=== PATIENT | male | born 1990 | race Caucasian/White ===

== ENCOUNTER 2018-05-18 16:20 | Emergency (ER) | payer OTHER ==
[2018-05-18] MEDS ORDERED: EPINEPHRINE INJ/PF 1 MG/1 ML AMPULE IM ONE (17:31)
[2018-05-18] MEDS ORDERED: FAMOTIDINE 20 MG TABLET PO ONE (17:32)
[2018-05-18] MEDS ORDERED: DEXAMETHASONE SOD PHOS INJ 10 MG/1 ML VIAL IM ONE (17:32)
--- NOTE | 2018-05-18 17:33 | ER Document Report ---
ED Allergic Reaction - General Chief Complaint: Allergic Reaction Stated Complaint: POSSIBLE ALLERGIC REACTION Time Seen by Provider: 05/18/18 17:31 Mode of Arrival: Ambulatory Information source: Patient, Relative Notes: Patient is a 27-year-old male who comes in emergency room in somewhat of a emergent fashion. Patient was working outside in stepped in or was working around by her aunts. They intact his lower extremities and was bitten several times. A few minutes later patient started having difficulty breathing he broke out in a sweat he itched all over and had a rash that was developing. He was and gave him 50 mg of Benadryl p.o. and ibuprofen in the head here to the emergency room. Patient complained of shortness of breath some upper lip swelling. Patient had no difficulty swallowing although he complained of some shortness of breath he had no airway obstruction at that time. He also stated he had a burning/weight in the center of his chest. Denies any other medical problems. TRAVEL OUTSIDE OF THE [place] IN LAST 30 DAYS: No - HPI Onset: Just prior to arrival Onset/Duration: Sudden, Worse Quality of pain: Burning, Fullness, Pressure Severity: Moderate Pain Level: 3 Identified cause: Yes Food exposure: Other - Fire ants Skin rash / itching: Facial, Trunk, Extremities, Diffuse, "Redness", "Hives" Swelling: Face, Lip(s) Trouble swallowing / speaking: Moderate Associated symptoms: Chest pain Similar symptoms previously: No Recently seen / treated by doctor: No - Related Data Allergies/Adverse Reactions: No Known Allergies Allergy (Verified 05/18/18 16:21) Past Medical History - General Information source: Patient, Relative - Social History Smoking Status: Never Smoker Cigarette use (# per day): No Chew tobacco use (# tins/day): No Smoking Education Provided: No Frequency of alcohol use: None Drug Abuse: None Lives with: Family Family History: Reviewed & Not Pertinent Review of Systems - Review of Systems Constitutional: No symptoms reported EENT: Difficulty swallowing, Mouth swelling. denies: Throat swelling Cardiovascular: No symptoms reported Respiratory: No symptoms reported Gastrointestinal: No symptoms reported Genitourinary: No symptoms reported Male Genitourinary: No symptoms reported Musculoskeletal: No symptoms reported Skin: Rash Hematologic/Lymphatic: No symptoms reported Neurological/Psychological: No symptoms reported -: Yes All other systems reviewed and negative Physical Exam - Vital signs Vitals: Temp Pulse Resp BP Pulse Ox 98.2 F 75 20 135/69 H 99 05/18/18 17:08 05/18/18 17:08 05/18/18 17:08 05/18/18 17:08 05/18/18 17:08 Interpretation: Hypertensive - Notes Notes: Well-nourished well-developed 27-year-old male moderate distress with rash and shortness of breath and upper lip swelling. - General General appearance: Alert, Anxious In distress: Moderate - HEENT Head: Normocephalic, Other - Patient has some mild swelling about his facial features. This includes around the lower eyes and cheek area. Also slightly around the upper lip. Lower lip is spared at this time. Eyes: Normal Conjunctiva: Normal External canal: Normal Tympanic membrane: Normal Sinus: Normal Nasal: Clear rhinorrhea Mouth/Lips: Other - Physical exam of his oral cavity on closer examination because he is allergic. Is more prominent when you can examine the upper lip which is just slightly enlarged compared to the lower. Somewhat protruding now and a little puffy. Pharynx: Normal, Potential airway comprom., Other - Examination of the oral cavity also with posterior pharynx appears normal at this time. Also patient has a normal-appearing tongue does not seem to be any angioedema related to the telemetry at this time. Patient is handling his secretions without any problem and he is breathing without any difficulty. He is satting 100% on room air. Neck: Normal, Supple. No: Anterior cervical chain, Posterior cervical chain, Carotid bruit, Kernig's, Lymphadenopathy, Meningismus, Neck mass, Shotty nodes, Subcutaneous emphysema, Thyromegally - Respiratory Respiratory status: No respiratory distress Chest status: Nontender Breath sounds: Normal, Wheezing, Other - Auscultation patient's lung case shows he has bilateral breath sounds breath sounds are increased with just a faint inspiratory wheeze noted mostly on the right side. No rhonchi rales are noted. Patient is exchanging air without any sign of airway compromise at this time.. 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 They are not extremely prominent but are visible. Patient is not diaphoretic and the sense of dripping wet. He is glistening so is more just a moist than diaphoretic at this time. Course - Re-evaluation Re-evalutation: 05/20/18 13:48 Given the patient had taken Benadryl p.o prior to arrival and the fact that he had some angioedema of the upper lip. Elected at this time to be on safe side and I did administer epinephrine x1. This was I believe 0.3 I am with epinephrine. And then we monitor patient along with his dexamethasone. He progressed really well without any side effects. His feelings of chest pain evaporated his mild shortness of breath also cleared up re-auscultation patient' s lung case show that the wheezing disappeared and he was clear to auscultation bilaterally and he was feeling much better. I had sit down with him and his and explained to them I am writing him for an EpiPen and explained to them why. 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 And that if he works outside it some months that he carried this plan with him because each attack of allergic reaction to this type of insect/and could be compounded and much quicker onset. Could lead to a more rapid advancement of swelling of the lips and tongue and therefore airway compromise quickly. If he is out in the field and this occurs without that he may not make it to the car to make a phone call. I stressed this highly to both he and his in the acknowledged understanding and concern as to why I was stressing this point.. 05/20/18 13:49 - Vital Signs Vital signs: Temp Pulse Resp BP Pulse Ox 98.2 F 60 18 124/59 L 97 05/18/18 17:08 05/18/18 19:28 05/18/18 19:28 05/18/18 19:28 05/18/18 19:28 Discharge - Discharge Clinical Impression: Allergic reaction Qualifiers: Encounter type: initial encounter Qualified Code(s): T78.40XA - Allergy, unspecified, initial encounter Fire ant sting Qualifiers: Encounter type: initial encounter Injury intent: accidental or unintentional Qualified Code(s): T63.421A - Toxic effect of venom of ants, accidental ( unintentional), initial encounter Condition: Stable Disposition: HOME, SELF-CARE Instructions: Acute Allergic Reaction ([facility]), Insect Bites ([facility]) Additional Instructions: Home and rest. This type of reaction is serious. You should carry with you an EpiPen at all times especially when you are outdoors or no habitat for any type of aunts. Each time you get bit 1 reaction builds on the other and is always worse. This time you had some minor swelling the next time may be worse and she need to keep the EpiPen at hand. I am placing you on a steroid taper and leaving you on the ranitidine stomach pill and he can continue taking Benadryl 50 mg every 4-6 hours for itch. Stay cool overheating may cause it to reactivate. I would be advised to stay cool for the next 48 hours. Definitely do not do anything to come in contact with fire ants in the next 48-72 hours. Should you have any concerns or problems return to ER for recheck. Prescriptions: Epinephrine [Epipen Jr 0.15 mg/0.3 mL AutoInject] 1 ea IM ASDIR PRN #1 autoinjector PRN Reason: Prednisone [Sterapred Ds] 10 mg PO ASDIR PRN 6 Days #1 tab.ds.pk PRN Reason: Ranitidine HCl 150 mg PO BID #30 tablet Forms: Elevated Blood Pressure, Smoking Cessation Education, Return to Work
[2018-05-18 19:32] VITALS: BP 124/59
== END 2018-05-18 19:32 | disposition home or self-care (01) ==
LOC: ER 16:20
DX: T63.421A Toxic effect of venom of ants, accidental (unintentional), initial encounter (principal); T78.40XA Allergy, unspecified, initial encounter; R06.02 Shortness of breath; R22.0 Localized swelling, mass and lump, head
CPT/HCPCS: 99283; 96372; J0171; J1100